=== PATIENT | male | born 1935 | race Caucasian/White ===

== ENCOUNTER 2024-07-25 05:52 | Inpatient (IN) | payer MEDICARE, OTHER, SELFPAY ==
[2024-07-20 10:19] VITALS: BMI 27.7
[2024-07-20 11:24] LABS: % Basophils 0.2 % (0-2); % Eosinophils 1.3 % (0-6); % Immature Granulocytes 0.3 % (0-0.5); % Lymphocytes 13.1 % (20.5-51.1); % Monocytes 9.7 % (1.7-9.3); % Neutrophils 75.4 % (42.2-75.2); APTT 127.1 Sec (23.4-35.0); Absolute Eosinophils 0.1 10^3/uL (0-0.7); Absolute Lymphocytes 0.8 10^3/uL (1.2-3.4); Absolute Monocytes 0.6 10^3/uL (0.1-0.6); Absolute Neutrophils 4.7 10^3/uL (1.4-6.5); Hematocrit 42.9 % (39.0-52.0); Hemoglobin 14.6 g/dL (13.0-18.0); INR 1.25; Mean Corpuscular Hgb 32.7 pg (27.0-31.0); Mean Corpuscular Volume 96.2 fL (80.0-94.0); Mean Platelet Volume 9.5 fL (7.4-10.4); Nucleated Red Blood Cells % 0 % (-); Platelet Count 141 10^3/uL (130-400); Red Blood Cell Count 4.46 10^6/uL (4.70-6.10); Red Cell Dist. Width 14.3 % (11.5-14.5); White Blood Cell Count 6.2 10^3/uL (4.8-10.8)
[2024-07-20 12:21] LABS: Blood Urea Nitrogen 23 mg/dl (9-20); Carbon Dioxide 23 mmol/L (22-30); Chloride 111 mmol/L (98-107); Estimated Creatinine Clearance 59 ml/min; Glucose 79 mg/dl (70-99); Potassium 3.9 mmol/L (3.5-5.1); Sodium 141 mmol/L (135-145); eGFR > 60.00
[2024-07-25] VITALS (28 sets, daily range): BP systolic 86–166; BP diastolic 50–117; BMI 27.0; BMI 25.4
[2024-07-25] MEDS: PERIDEX 0.12% ORAL RINSE 15 ML PO (06:56)
[2024-07-25] MEDS: BACTROBAN NASAL 1 GRAM NASAL (06:56)
--- NOTE | 2024-07-25 07:03 | W.SUR.PREOP ---
Pre-Operative Surgical Note
-
I have examined this patient prior to the performance of the scheduled procedure.
The patient's condition is unchanged from the time of the current History and
Physical and the patient is able to undergo the scheduled procedure.
Note patient has a cord that inserts into the right IJ just above the clavicle. (Just superior to the clavicle). I discussed with the patient and his this could challenge TCAR, but based on my palpation of it and interpretation of the CT scan
I think we should be okay. I did however discuss with him as an alternative carotid endarterectomy. Discussed the procedure prior as well./Benefit/alternatives of that discussed. If needed we will proceed with right carotid endarterectomy. But
initial plan still for right TCAR. He is in agreement with all.
[2024-07-25] MEDS: VANCOCIN 530 MG IV (07:08)
[2024-07-25 09:03] LABS: ACT-LR - POC 385 Seconds (116-155)
--- NOTE | 2024-07-25 09:34 | W.SUR.POST ---
Surgical Immediate Post Op
Note
Pre Op Diagnosis: Right carotid stenosis
Post Op Diagnosis: Right carotid stenosis
Procedure Performed: Right TCAR with EEG monitoring
Primary Surgeon: Sony Diehl M.D.
human resource assistant: KIAH Serrato
Anesthesia: GETA
Estimated Blood Loss: 5 ml
Fluids: See anesthesia flowsheet
Drains/Shunts: N/A
Specimens/Cultures: None
Doppler/Duplex/Angio (Y/N): Y
Complications: None
Operative Findings: Upon awakening from anesthesia patient was able to move upper extremities and lower extremities spontaneous and to commands, successful endovascular intervention for carotid stenosis
--- NOTE | 2024-07-25 10:07 | OR.RPT ---
Addendum entered and electronically signed by Sony Diehl MD 07/25/24 16:50:
Fluoroscopy time: 4.0 minutes
Dose: 46 mGy
DAP: 5.08
Original Note:
Operative Report
Operative Report
PROCEDURE DATE: 07/25/2024
Preoperative diagnosis:
1. Critical right carotid artery stenosis, questionable symptomatic.
2. Chronic left internal carotid artery occlusion.
Postoperative diagnosis: same
Procedure:
1. Open exposure of right common carotid artery.
2. Transcarotid right carotid artery revascularization with stent (TCAR) with Enroute 9mm x 40mm self-expanding stent, and utilizing Enroute HEAD PACKAGER flow reversal intraprocedural neuro protection.
3. Intraoperative EEG/SSEP monitoring.
4. Supervision and interpretation
CPT code 60869, SVS VQI TCAR #[id number]
Surgeon: Fazal
Mold Repairer: EVAN Quintero, required for this vascular procedure including assistance with traction/countertraction, assistance with wire manipulation/device delivery, assistance with closure.
Complications: None
Anesthesia: General
Indications for procedure:
Critical right carotid artery stenosis, chronic left occlusion. Neurologic symptoms he had had over the course of several months, some raising concern for possible symptomatology. Risk/benefits/alternatives of TCAR fully discussed. Patient
understood all wished to proceed. Note the patient had a right sided [id number] that tunneled over the clavicle and into the IJ vein, but it was somewhat lateral to the clavicular head of the sternocleidomastoid muscle, and on cross-sectional
imaging appeared to dive into the vein at the level of or just underneath the clavicle, and I did assess this with ultrasound while in the operating room and confirmed that this would likely not be in my way for exposure.
Description of procedure:
Patient was identified brought to the operating room placed on the table in supine position. After the adequate administration of anesthesia and perioperative antibiotics he was prepped and draped in the standard surgical fashion. A standard
preoperative timeout was undertaken and everybody was in agreement the plan. A longitudinal incision was made at the base of the right neck between the heads of the sternocleidomastoid muscle just superior to the clavicle. This incision was
carried through the skin subcutaneous tissue. Using the electrocautery dissection was carried through the platysma muscle layer and then in the plane between the heads of the sternocleidomastoid muscle. Then using a combination of sharp dissection
with the Metzenbaum scissors and electrocautery I dissected along the anterior medial border of the internal jugular vein. The common carotid artery was identified and carefully dissected away from the surrounding structures take great care to
avoid any injury to the structures. Note the vessel was noted to be quite deep, but after careful circumferential dissection, a vessel loop was passed around it. Then I was able to pull the carotid anterior somewhat using the vascular. The common
carotid artery was dissected circumferentially only in the proximal portion of the exposed artery, and the anterior surface was dissected for another 2 cm. Next, a 5-0 Prolene pursestring stitch was placed on the anterior middle surface of the
common carotid artery at the anticipated puncture/cannulation site. The patient was now given 9000 units of intravenous heparin.
Next, the left common femoral vein was punctured with a micropuncture kit under direct duplex ultrasound guidance. An 8 Lithuanian venous sheath was placed over 0.035 inch wire into the vein. The sheath was flushed.
Next, while maintaining anterior tension on the vessel loop (single looped), the right common carotid artery was punctured with a micropuncture needle (premarked) to only 1 cm and a premarked 0.014 inch wire was inserted and then the needle was
exchanged out for a premarked micropuncture sheath and advanced to 3 cm flor. The dilator and wire were then removed. Right anterior oblique angiogram was performed. This delineated the carotid bifurcation. It confirmed the severe stenosis in
the proximal internal carotid artery. The carotid bifurcation was marked on the screen. Now, I guided my 0.014 inch wire into the external carotid artery without difficulty. Next I reinserted the introducer for the micropuncture sheath, and then
advanced the entire sheath into the external carotid artery. I then removed the dilator and the 0.014 inch wire. Next, I then advanced a 0.035 inch wire with a J curve at the tip. I then exchanged the micropuncture sheath out for the 8 [place]
[address] [place] [address] sheath, which was advanced to the footplate under fluoroscopy with careful vigilance of the distal tip of the wire. Once advanced to the footplate, the introducer and wire were removed. The tension from the vessel loop was
released. And the sheath was secured to the skin with silk suture. The sheath was burped back and also flushed carefully. Next repeat imaging was undertaken confirming the best angulation of the gantry for imaging. At this point, the angioplasty
balloon and stent were prepared. We paused to confirm the plan regarding balloon/stent, and confirmed adequate ACT over 300. Next, I connected the arterial sheath to the venous sheath with the filter section. As such passive flow reversal was
initiated. There were no evidence of any EEG or SSEP changes. We flushed the venous sheath to confirm adequate passive flow reversal.
At this point given that we were otherwise ready, I tightened my double looped vessel loop on the common carotid artery thereby initiating active flow reversal. Again I flushed the venous sheath to confirm active flow reversal. There was no EEG or
SSEP changes. I now used a precurved 0.014 inch wire and roadmap assisted fluoroscopy guidance to cannulate the internal carotid artery carefully. I was able to gain access into the distal cervical/proximal intracranial internal carotid artery.
Next I used a balloon which was a 6.0 mm x 30 mm Viatrac standard angioplasty balloon. I then pre-angioplastied the stenosis. The patient had been given glycopyrrolate to prevent any baroreceptor mediated bradycardia. The patient's blood pressure
had also been optimized after discussion with our anesthesiology colleagues prior to initiation of flow reversal. I then quickly exchanged out my balloon catheter for the stent 9mm x 40mm Enroute stent. The stent was positioned under roadmap
guidance. When I was happy with the positioning I then unsheathed in the standard fashion. The stent delivery device was then removed. Completion angiography was undertaken after 2 minutes of waiting after deployment of the stent for the flow
reversal to take effect. Completion angiogram demonstrated excellent result and it was done in 2 obliquities to confirm. No residual stenosis was noted. Good intracranial filling was noted. At this point, I was very satisfied. The 0.014 inch
wire was then removed from the internal carotid artery. Next, the common carotid artery was unclamped. Finally I disconnected the flow reversal circuit.
Now, I tied down my 5-0 Prolene pursestring suture on the common carotid artery while removing the sheath. We gave protamine to reverse the heparin. I irrigated the incision site and confirmed full hemostasis. Then, we closed in layers using
single [id number] 2-0 Vicryl to reapproximate the sternocleidomastoid heads. Then used 3-0 Vicryl platysma muscle running layer followed by 4-0 Monocryl subcuticular running stitch. Dermabond was applied. The femoral vein sheath was also
removed and manual pressure was applied to that site and hemostasis was noted there as well. The patient tolerated the procedure well. He awoke moving all 4 extremities to command. All sponge, needle, instrument counts were correct at the end of
the case. The patient was transported to the recovery room in stable condition.
[2024-07-25] MEDS: NEO-SYNEPHRINE 250 IV (10:26)
--- NOTE | 2024-07-25 10:45 | PTCARENOTE ---
Addendum.. Per Edie Bowen utilize cuff pressure for accuracy as A-line waveform isdampened. Since arrival unable to maintain a wave form. A-line evaluated by Dr Avila as well. Positive blood return, able to draw labs will maintain A-line.
[2024-07-25] MEDS: DILAUDID 0.25 MG IV (10:50)
[2024-07-25 10:53] LABS: Hematocrit 38.9 % (39.0-52.0); Hemoglobin 13.3 g/dL (13.0-18.0); Mean Corp Hgb Conc. 34.2 g/dL (33.0-37.0); Mean Corpuscular Hgb 32.7 pg (27.0-31.0); Mean Corpuscular Volume 95.6 fL (80.0-94.0); Mean Platelet Volume 9.4 fL (7.4-10.4); Platelet Count 141 10^3/uL (130-400); Red Blood Cell Count 4.07 10^6/uL (4.70-6.10); Red Cell Dist. Width 14.4 % (11.5-14.5); White Blood Cell Count 8.4 10^3/uL (4.8-10.8)
[2024-07-25 11:14] LABS: Blood Urea Nitrogen 28 mg/dl (9-20); Carbon Dioxide 22 mmol/L (22-30); Chloride 112 mmol/L (98-107); Estimated Creatinine Clearance 55 ml/min; Glucose 118 mg/dl (70-99); Potassium 4.7 mmol/L (3.5-5.1); Sodium 139 mmol/L (135-145); eGFR > 60.00
--- NOTE | 2024-07-25 12:10 | PTCARENOTE ---
Received patient from PACU, Right neck surgical incision dry and intact with glue, Left femoral surgical site covered with gauze and Tegaderm, soft with palpation, neuro checks intact, lying flat in bed until 11:55AM.
Pt A&Ox4, on NC 2L, Afib, Doppler DP pulses, Left radial art line, checked and rezeroed, 18RA and 20LA PIVs intact, continent with urine, yellow color. Updated Marilou and Son Phil at bedside.
[2024-07-25] MEDS: NSS 1000 IV ×2 (12:14→22:48)
--- NOTE | 2024-07-25 13:09 | CON.INTV ---
Consultation
Consultation Request
Date/Time Consultation Requested: 07/25/2024
Date/Time Consultation Performed: 07/25/2024
Medical History
-
History of Present Illness:
Patient is a very pleasant 88-year-old gentleman who was electively admitted today for carotid artery stenosis with plan for stent placement. Patient had the procedure performed and postsurgery was admitted to ICU for further management.
Wardrobe Supervisor consult was requested for further input.
Past medical history. Hypertension, paroxysmal atrial fibrillation, chronic kidney disease stage III, hyperlipidemia, cholecystectomy, tonsillectomy and appendectomy.
Family history. Noncontributory
Social history. Patient quit smoking in 1981.
Allergies / Home Medications
Allergies
Allergy/AdvReac Type Severity Reaction Status Date / Time
levofloxacin [From Levaquin] Allergy SYNCOPE Verified 07/25/24 06:21
Penicillins Allergy REDNESS/SWELLING Verified 07/25/24 06:21
( A
TEENAGER)
Home Medications
�Medication �Instructions �Recorded �Confirmed �Last Taken �Type
apixaban 5 mg tablet (Eliquis) 5 mg PO BID Blood Clot 07/17/24 07/25/24 07/22/24 22:00 History
Prevention/Tx
aspirin 81 mg tablet,delayed 81 mg PO DAILY Blood Clot 07/17/24 07/25/24 07/25/24 06:00 History
release Prevention/Tx
azacitidine 300 mg tablet (Onureg) 300 mg PO DIRECTED AML 07/17/24 07/25/24 07/18/24 20:00 History
multivitamin 1 tab PO DAILY Supplement 07/17/24 07/25/24 07/24/24 08:00 History
ondansetron HCl 8 mg tablet 8 mg PO DIRECTED NAUSEA/VOMITING 07/17/24 07/25/24 07/18/24 20:00 History
valsartan 40 mg tablet 20 mg PO DAILY Blood Pressure 07/17/24 07/25/24 07/24/24 10:00 History
Review of Systems
-
Hematologic/Lymphatic: Other (All 14 systems reviewed and negative except as stated above in the history of present illness. Mild expected postop pain)
Vitals / Labs / Diagnostic Testing
Vital Signs
Temp Pulse Resp BP Pulse Ox
97.4 F 72 11 107/65 98
07/25/24 12:03 07/25/24 11:25 07/25/24 11:25 07/25/24 11:25 07/25/24 11:25
Lab Data
07/25/24 10:46
07/25/24 10:46
Diagnostic Testing:
Physical Exam
-
HEENT: Normocephalic
Cardiovascular: S1/S2
Respiratory: Clear
GI: Soft
Neurology: Awake and Alert
Skin: Warm
General: Comfortable
Assessment
-
Patient is s/p Transcarotid right carotid artery revascularization with stent (TCAR) with Enroute 9mm x 40mm self-expanding stent, by vascular surgery service, POD #0
Continue observation following procedure
Follow neurovascular checks per protocol
ASA PO
Follow BP monitoring and parameters as set by primary team
H/o A fib. continue telemetry. A-Line in place. Eliquis on hold.
Pain control per protocol
RASS goal 0
No prior history of pulmonary disease, remote smoking history, quit in 1981
CXR reviewed indicating no acute disease
No prior PFTs for review
Encouraged IS
Diet advancement per protocol
Aspiration precautions
DVT prophylaxis with subcu heparin.
CBC, BMP have been fairly unremarkable.
Void trials
Replete electrolytes as needed
No signs/symptoms suspicious for infectious etiology at this time
Will observe off antibiotics for now
Follow temperatures/CBC
Hb and platelets postoperatively stable
Encouraged OOB/PT/OT/ambulation once cleared by surgical team
Other medical issues:
- History of chronic kidney disease, creatinine today is 1.1
- Paroxysmal atrial fibrillation, chronic anticoagulation with Eliquis at baseline
- History of hypertension, takes valsartan
- Hyperlipidemia
- BPH
Critical Care time 42 mins -- The patient is admitted for acute critical illness for the treatment of vital organ failure and/or prevention of further life-threatening conditions. Total care includes time spent in review of history, physical exam,
medications, hemodynamic/ventilator parameters, laboratory data, imaging and discussion with house staff, pharmacy, respiratory therapy, protocol manager, and nursing.
Data:
CXR 07/2024:No radiographic evidence of acute cardiopulmonary abnormality.
ECHO 09/2017: Normal left ventricular size, wall thickness and systolic function. LV ejection fraction is 55-60%.
Possible bicuspid aortic valve but imaging not definitive is adequate leaflet excursion.
No prior study available for comparison.
CT Chest 09/2017: No evidence of pulmonary embolism.
Mild type B aortic intramural hematoma. By report, there is a known history of some type of 'aortic process' in the past. Therefore, findings may be chronic. Direct comparison with any prior outside examination would be beneficial.
Mild bronchial wall thickening/bronchitis.
CT Abdomen/Pelvis 09/2017:
1. Severe aortic atherosclerotic changes as described. No findings highly suspicious for recent aortic intramural hematoma. There is extensive irregular mural thrombus along the thoracic and abdominal aorta as above. There is mild ectasia of the
ascending aorta.
2. 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 No signs of a flow-limiting dissection.
3. Severe stenoses at the origins of the bilateral renal arteries.
4. Bilateral renal cysts and likely cysts.
5. Diverticulosis without diverticulitis.
[2024-07-25] MEDS: TYLENOL 650 MG PO (14:52)
--- NOTE | 2024-07-25 16:30 | PTCARENOTE ---
Reassessed the patient, A&Ox4, on RA now, Afib w/ RBBB, off Phenylephrine drip at 12:30PM, SBP within goal, low cholesterol diet, adequate UOP.
Patient complained indigestion, notified GURMEET Irizarry ordered.
[2024-07-25] MEDS: TUMS EX (EXTRA STRENGTH) CHEWABLE TABLET 600 MG PO ×2 (17:18→22:47)
[2024-07-25] MEDS: HEPARIN 5000 UNITS SC (20:03)
[2024-07-25] MEDS: ROXICODONE 5 MG PO (20:03)
[2024-07-26] VITALS (42 sets, daily range): BP systolic 80–136; BP diastolic 46–87; BMI 25.5
--- NOTE | 2024-07-26 | PTCARENOTE ---
pt reassessed, q1h neuro checks ongoing, afib on monitor, oriented x3, KIRBY, denies numbness or tingling, on RA, using urinal. R neck incision w/ glue, ecchymosis noted, LONG CHAIN BEAMER. L groin site with gauze and Tegaderm, old drainage noted. NS infusing,
arterial line leveled and zeroed. call siu in reach.
[2024-07-26] MEDS: ROXICODONE 5 MG PO (02:02)
[2024-07-26] MEDS: TUMS EX (EXTRA STRENGTH) CHEWABLE TABLET 600 MG PO ×3 (02:50→16:13)
[2024-07-26] MEDS: TYLENOL 650 MG PO ×2 (04:53→09:22)
--- NOTE | 2024-07-26 05:06 | PTCARENOTE ---
AM labs sent. PRN pain meds given overnight for surgical incision pain, see MAY. call siu in reach. care ongoing
[2024-07-26 05:08] LABS: Hematocrit 37.6 % (39.0-52.0); Hemoglobin 12.7 g/dL (13.0-18.0); Mean Corp Hgb Conc. 33.8 g/dL (33.0-37.0); Mean Corpuscular Hgb 32.1 pg (27.0-31.0); Mean Corpuscular Volume 94.9 fL (80.0-94.0); Mean Platelet Volume 9.8 fL (7.4-10.4); Platelet Count 152 10^3/uL (130-400); Red Blood Cell Count 3.96 10^6/uL (4.70-6.10); Red Cell Dist. Width 14.2 % (11.5-14.5); White Blood Cell Count 7.8 10^3/uL (4.8-10.8)
[2024-07-26 05:17] LABS: INR 1.04; PT 14.1 Sec (11.4-14.6)
[2024-07-26 05:19] LABS: APTT 34.5 Sec (23.4-35.0); Blood Urea Nitrogen 29 mg/dl (9-20); Calcium 9.1 mg/dl (8.4-10.2); Carbon Dioxide 22 mmol/L (22-30); Chloride 111 mmol/L (98-107); Estimated Creatinine Clearance 61 ml/min; Glucose 132 mg/dl (70-99); Potassium 4.7 mmol/L (3.5-5.1); Sodium 138 mmol/L (135-145); eGFR > 60.00
--- NOTE | 2024-07-26 06:30 | PTCARENOTE ---
Dr Hallman notified via TT of HR dipping into 30-40 range, remains in afib. Ron restarted briefly for SBP 90-100, pt responded quickly with SBP rising to 180, gtt titrated off, see flowsheet.
[2024-07-26] MEDS: THERAGRAN 1 TABLET PO (07:20)
[2024-07-26] MEDS: ASPIR LOW (ENTERIC COATED) 81 MG PO (07:20)
[2024-07-26] MEDS: HEPARIN 5000 UNITS SC (07:28)
[2024-07-26] MEDS: DIOVAN 20 MG PO (07:34)
--- NOTE | 2024-07-26 07:34 | W.PN.VS ---
Today's Communication / Plan
-
Seen and assessed with Dr. Diehl
Assessment/Plan
-
POD 1 right TCAR
Plan:
- DC A-line
- DC IV fluids
- P.o. meds
- Out of bed/ambulate
- Monitor heart rate
- Likely DC later today
Subjective Data
-
Date of Service: July 26, 2024
Patient seen at bedside this a.m. with Dr. Diehl. Patient offers no complaints at this time. Patient was noted to be slightly bradycardic over the last hour while on ron. Ron off now heart rate returned to upper 50s.
Objective Data
-
Vital Signs
Temp Pulse Resp BP Pulse Ox
97.7 F 39 13 94/53 94
07/26/24 06:08 07/26/24 06:45 07/26/24 06:45 07/25/24 14:00 07/26/24 06:45
Intake and Output
07/25/24 07/26/24 07/27/24
06:59 06:59 06:59
Intake Total 2966 / 2966
Output Total 2475 / 2475
Balance 491 / 491
Intake:
Oral fluids 1440 / 1440
IV fluids (Total) 1526 / 1526
Neosynephrine 6 / 6
Nss 1,000 ml @ 80 mls/hr IV . 1520 / 1520
[id number] CARLOS Rx#:[id number]
Output:
Urine, Voided 2474 / 2475
Lab Results
07/26/24 04:45
07/26/24 04:45
Calcium 9.1 mg/dl (8.4-10.2) 07/26/24 04:45
Physical Exam
-
AAO x 3
No tachypnea on room air
Intermittent bradycardia
Abdomen soft
Neck site clean, dry, intact, soft, flat
Groin site clean, dry, intact, soft, flat
Moves all extremities equally
Tongue midline
--- NOTE | 2024-07-26 08:03 | PTCARENOTE ---
Pt received from chief chemist RN. Pt is Ox3 and appropriate, no complaints of numbness. KIRBY +4. Afib in the 40-50's on tele with occasional pauses, + pedals via doppler. L radial A line removed, pressure held for >5 mins and a pressure dressing was
applied. Breath sounds clear on RA, pulse ox 97%. No complaints of nausea, pt has not eaten yet this AM but complains of some indigestion. Using urinal appropriately. R neck site CDI with surgical glue, L groin puncture site intact with some mild
bleeding. IV sites intact, fluids dc'd. Pt assisted OOB to the chair without any difficulty. Call siu within reach. Pt makes needs known.
--- NOTE | 2024-07-26 09:07 | W.PN.INTV ---
Today's Communication / Plan
Recommendations
- Check TSH
- Cardiology consult
- Continue telemetry monitoring
Assessment
-
Patient is a very pleasant 88-year-old gentleman who was electively admitted today for carotid artery stenosis with plan for stent placement. Patient had the procedure performed and postsurgery was admitted to ICU for further management.
Multiple Games Dealer consult was requested for further input.
Patient is s/p Transcarotid right carotid artery revascularization with stent (TCAR) with Enroute 9mm x 40mm self-expanding stent, by vascular surgery service, POD #1
Continue observation following procedure
Follow neurovascular checks per protocol
ASA & Eliquis per Vascular surgery
Follow BP monitoring and parameters as set by primary team
H/o A fib. continue telemetry. A-Line removed.
Pain control per protocol
RASS goal 0
No prior history of pulmonary disease, remote smoking history, quit in 1981
CXR reviewed indicating no acute disease
No prior PFTs for review
Encouraged IS
Diet advancement per protocol
Aspiration precautions
DVT prophylaxis with subcu heparin.
CBC, BMP have been fairly unremarkable.
Void trials
Replete electrolytes as needed
No signs/symptoms suspicious for infectious etiology at this time
Will observe off antibiotics for now
Follow temperatures/CBC
Hb and platelets postoperatively stable
Encouraged OOB/PT/OT/ambulation once cleared by surgical team
Other medical issues:
- History of chronic kidney disease, creatinine today is 1.0 today
- Paroxysmal atrial fibrillation with bradycardia. Has not been on any willian blocking agent. Cardiology consult, continue telemetry, ?sick sius. Check TSH. Holding valsartan due to soft blood pressure.
- History of hypertension, takes valsartan, placed on hold in view of borderline low blood pressure, otherwise asymptomatic
- Hyperlipidemia
- BPH
Critical Care time 40 mins -- The patient is admitted for acute critical illness for the treatment of vital organ failure and/or prevention of further life-threatening conditions. Total care includes time spent in review of history, physical exam,
medications, hemodynamic/ventilator parameters, laboratory data, imaging and discussion with house staff, pharmacy, respiratory therapy, inseminator, and nursing.
Data:
CXR 07/2024:No radiographic evidence of acute cardiopulmonary abnormality.
ECHO 09/2017: Normal left ventricular size, wall thickness and systolic function. LV ejection fraction is 55-60%.
Possible bicuspid aortic valve but imaging not definitive is adequate leaflet excursion.
No prior study available for comparison.
CT Chest 09/2017: No evidence of pulmonary embolism.
Mild type B aortic intramural hematoma. By report, there is a known history of some type of 'aortic process' in the past. Therefore, findings may be chronic. Direct comparison with any prior outside examination would be beneficial.
Mild bronchial wall thickening/bronchitis.
CT Abdomen/Pelvis 09/2017:
1. Severe aortic atherosclerotic changes as described. No findings highly suspicious for recent aortic intramural hematoma. There is extensive irregular mural thrombus along the thoracic and abdominal aorta as above. There is mild ectasia of the
ascending aorta.
2. 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 No signs of a flow-limiting dissection.
3. Severe stenoses at the origins of the bilateral renal arteries.
4. Bilateral renal cysts and likely cysts.
5. Diverticulosis without diverticulitis.
Subjective Dataa
Subjective Data
Date of Service:
Date of Service: July 26, 2024
Subjective:
Patient comfortably sitting in bed, in no acute distress.
Review of Systems
Genitourinary: Other (All 14 systems reviewed and negative except as stated above in the history of present illness. Patient denies any dizziness, near-syncope or difficulty breathing.)
Objective Data
Data Reviewed
Vital Signs / I&O / Oxygen:
Vital Signs
Temp Pulse Resp BP Pulse Ox
97.8 F 46 16 116/64 97
07/26/24 07:35 05/22/25 08:00 07/26/24 08:00 07/26/24 08:00 07/26/24 08:17
Intake and Output
07/25/24 07/26/24 07/27/24
06:59 06:59 06:59
Intake Total 2966 / 3046 160 / 160
Output Total 2475 / 2475
Balance 491 / 571 160 / 160
SaO2 97
Nasal Cannula flow liters per 2
minute
Physical Exam
General: Comfortable
HEENT: Normocephalic
Cardiovascular: S1-S2 (Bradycardia noted)
Respiratory: Clear and Non-Labored Respirations
GI: Soft and Non Distended
Neurology: Awake and Alert
Skin: Warm
Labs/Micro/Reports
Lab Data
07/26/24 04:45
07/26/24 04:45
Laboratory Results
07/26/24
04:45
PT 14.1
INR 1.04
APTT 34.5
--- NOTE | 2024-07-26 09:23 | CON.CAR ---
Consultation
Consultation Request
Date/Time Consultation Requested: 07/26/2024 9 AM
Date/Time Consultation Performed: 07/26/2024 9:20 AM
Requesting Provider: Dr. Diehl
Performing Provider: Dr. Amaya
Reason for Consultation: Bradycardia
Medical History
-
History of Present Illness:
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 Rey Ortega 06/01/2024
.
88-year-old male who had seen Dr. Ortega there was concern for symptoms related to amaurosis fugax. Patient also with atrial fibrillation placed on anticoagulation. Not felt to have symptoms related to A-fib at that time appears patient was
started on Eliquis and then had additional evaluation for TIA. 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 Previous ECG with atrial fibrillation with controlled
ventricular response at heart rate of 81 bpm right bundle branch block and left axis/bifascicular block.
Patient underwent right TCAR and is in ICU. Noted to have bradycardia.
No syncope or near syncope currently asymptomatic at sitting in a chair heart rate in the 50s. Review of telemetry some heart rates in the 40s no long pauses.
Systolic blood pressure in the 90s
Past medical history
A-fib. Anticoagulation with Eliquis which was started 06/01/2024
AML
Type B intramural hematoma
Renal artery stenosis with history of renal artery stenting
History of nonobstructive coronary artery disease 20% LAD stenosis by cardiac catheterization
RBBB
CKD
Cholecystectomy
Nephrolithiasis
GERD
Total hip arthroplasty
Hypertension
Raynaud's phenomenon
Echocardiogram ejection fraction 55 to 60% possible bicuspid aortic valve 09/13/2017
Past Medical History
Past Medical History: Other (As above)
Social History
Tobacco: Non-Smoker
Family History
Family History: Reviewed & Not Pertinent
Allergies / Home Medications
Allergy/AdvReac Type Severity Reaction Status Date / Time
levofloxacin [From Levaquin] Allergy SYNCOPE Verified 07/25/24 06:21
Penicillins Allergy REDNESS/SWELLING Verified 07/25/24 06:21
( A
TEENAGER)
�Medication �Instructions �Recorded �Confirmed �Type
apixaban 5 mg tablet (Eliquis) 5 mg PO BID Blood Clot 07/17/24 07/25/24 History
Prevention/Tx
aspirin 81 mg tablet,delayed 81 mg PO DAILY Blood Clot 07/17/24 07/25/24 History
release Prevention/Tx
azacitidine 300 mg tablet (Onureg) 300 mg PO DIRECTED AML 07/17/24 07/25/24 History
multivitamin 1 tab PO DAILY Supplement 07/17/24 07/25/24 History
ondansetron HCl 8 mg tablet 8 mg PO DIRECTED NAUSEA/VOMITING 07/17/24 07/25/24 History
valsartan 40 mg tablet 20 mg PO DAILY Blood Pressure 07/17/24 07/25/24 History
Review of Systems
-
All other systems: Negative unless noted
Physical Exam
Vital Signs
Temp Pulse Resp BP Pulse Ox
97.8 F 46 16 116/64 97
07/26/24 07:35 07/26/24 08:00 07/26/24 08:00 07/26/24 08:00 07/26/24 08:17
Lab Results
07/26/24 04:45
07/26/24 04:45
Physical Exam
General: Well Developed, Well Nourished and No Apparent Distress
HEENT: Normocephalic, Anicteric and Other (No detectable JVD)
Cardiac: Other (Irregular irregular no murmur rub or gallop)
GI: Soft, Non Tender, Non Distended and Other (No mass detected Limited exam in chair)
Musculoskeletal: No Clubbing and No Cyanosis
Skin: Warm, Dry and Rash (None)
Neuro: Awake and Alert
Psych: Calm and Other (Cooperative)
Impression / Plan
-
.
Bradycardia.
- A-fib with slow ventricular response with no rate slowing meds.
- Patient with underlying conduction disease he has a history of right bundle branch block/bifascicular block with rate controlled A-fib despite no rate slowing meds based on prior ECG in May. That time heart rate in the 80s.
- Patient may be running slower heart rate than baseline due to recent carotid procedure/ TCAR.
- Currently patient with heart rate in the 50s.
- No indication for pacing at this time. However would recommend additional observation on telemetry
- Patient had recent outpatient echocardiogram and will have his bring in the result. Echocardiogram was done within the last 2 months
.
Low blood pressure. Systolic blood pressures in the 90s may be multifactorial
- Discontinue valsartan and monitor blood pressures
- Additional IV fluid
- Monitor pressures.
.
A-fib.
- History of A-fib prior to admission.
- Resume Eliquis when okay from a postoperative standpoint
.
Post TCAR management directed by vascular surgery
.
Data Reviewed
-
EKG: Report Reviewed by me
Radiology: Report Reviewed by me
Medical Tests (Nuc Med, Echo etc): Report Reviewed by me
Labs: Labs Reviewed by me and Discussed with Physician
--- NOTE | 2024-07-26 09:31 | PTCARENOTE ---
HR frequently dropping into the mid to low 30's, BP in the 100/50's pt states that he feels tired but this is most likely from not getting any sleep overnight. made aware. EKG obtained.
[2024-07-26] MEDS: NSS 250 IV (10:00)
[2024-07-26 10:52] LABS: TSH 0.47 uIU/ml (0.47-4.68)
[2024-07-26] MEDS: NSS 500 IV (11:17)
--- NOTE | 2024-07-26 11:29 | PTCARENOTE ---
Pt sitting up in the chair. He states that he feels dizzy with double vision in his L eye. BP currently 89/49, HR 61. Pt pulled over from the chair to bed. Vascular CITY ROUTE DRIVER spoke to pt and , 500ml NSS bolus ordered.
--- NOTE | 2024-07-26 11:37 | CM ---
Initial assessment completed with patient who lives with his in a 2 story plus basement home with 1 step to enter. B/B on 2nd with 1/2 bath on . 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 He does drive. No DME in home but does
have a [employer] Mobile device to monitor his A-Fib.
No in-home services. Was in the [place]. [facility] [place] Does have a HC POA. Requested to bring in to hospital. Support system is and 2 sons and vernon-in-law. PCP is Dr. Hakeem Renee and Pharmacy is [facility] [address] in [place].. Patient has had [facility] in the past but has declined services at this time. Spoke with who said she always has taken care of him and does not feel he will need HH. Discharge POC: Home with no needs. Declined HH
services.
[2024-07-26] MEDS: ELIQUIS 5 MG PO (15:01)
[2024-07-26] MEDS: PEPCID 20 MG IV (18:21)
[2024-07-26] MEDS: NSS (PRESERVATIVE FREE) 8 ML IV (18:21)
[2024-07-27] VITALS (47 sets, daily range): BP systolic 90–161; BP diastolic 40–94; PULSE 42–64; BMI 25.5
--- NOTE | 2024-07-27 | PTCARENOTE ---
pt reassessed. no changes noted. CHG bath and oral care done
[2024-07-27 03:27] LABS: Hematocrit 38.3 % (39.0-52.0); Hemoglobin 12.8 g/dL (13.0-18.0); Mean Corp Hgb Conc. 33.4 g/dL (33.0-37.0); Mean Corpuscular Hgb 32.4 pg (27.0-31.0); Platelet Count 138 10^3/uL (130-400); Red Blood Cell Count 3.95 10^6/uL (4.70-6.10); Red Cell Dist. Width 14.5 % (11.5-14.5); White Blood Cell Count 5.3 10^3/uL (4.8-10.8)
[2024-07-27 03:49] LABS: Blood Urea Nitrogen 34 mg/dl (9-20); Calcium 8.9 mg/dl (8.4-10.2); Carbon Dioxide 22 mmol/L (22-30); Chloride 112 mmol/L (98-107); Estimated Creatinine Clearance 47 ml/min; Glucose 95 mg/dl (70-99); Magnesium 1.9 mg/dl (1.6-2.3); Potassium 4.5 mmol/L (3.5-5.1); Sodium 139 mmol/L (135-145); eGFR 53.17
--- NOTE | 2024-07-27 04:30 | PTCARENOTE ---
AM labs sent. pt reassessed, no changes noted. q4h neuro checks. call siu in reach
[2024-07-27] MEDS: ELIQUIS 5 MG PO ×2 (05:52→20:22)
--- NOTE | 2024-07-27 07:25 | W.PN.VS ---
Addendum entered and electronically signed by Sony Diehl MD 07/27/24 07:28:
Seen and examined with EVAN Quintero. Agree with findings as noted below. Patient without any complaints. Denies any episodes of dizziness/chest pain. Noted bradycardia episodes. Right neck incision is clean dry and intact. Abdomen soft, left
groin flat. Neurologically no focal deficits. Plan/as discussed and noted below. Appreciate cardiology evaluation and follow-up regarding bradycardia.
Original Note:
Today's Communication / Plan
-
Seen and assessed with Dr. Diehl
Assessment/Plan
-
POD 1 right TCAR
Plan:
- Appreciate cardiology
- Out of bed/ambulate
- Monitor heart rate
- Discharge when cleared from cardiology perspective
Subjective Data
-
Date of Service: July 27, 2024
Patient seen at bedside this a.m. with Dr. Diehl. Patient offers no real complaints at this time. No events overnight. Patient's heart rate dropped to the mid 30s this morning, asymptomatic.
Objective Data
-
Vital Signs
Temp Pulse Resp BP Pulse Ox
97.4 F 67 15 116/68 100
07/27/24 03:30 07/27/24 06:00 07/27/24 06:00 07/27/24 06:00 07/26/24 22:30
Intake and Output
07/26/24 07/27/24 07/28/24
06:59 06:59 06:59
Intake Total 2966 / 3046 1630 / 1630
Output Total 2475 / 2475 1650 / 1650
Balance 491 / 571 -20 / -20
Intake:
Oral fluids 1440 / 1440 720 / 720
IV fluids (Total) 1526 / 1606 910 / 910
NSS Bolus 750 / 750
Neosynephrine 6 / 6
Nss 1,000 ml @ 80 mls/hr IV . 1520 / 1600 160 / 160
[id number] [facility] Rx#:[id number]
Output:
Urine, Voided 2475 / 2475 1650 / 1650
Lab Results
07/27/24 03:12
07/27/24 03:12
Calcium 8.9 mg/dl (8.4-10.2) 07/27/24 03:12
Magnesium 1.9 mg/dl (1.6-2.3) 07/27/24 03:12
Physical Exam
-
AAO x 3
No tachypnea on room air
Intermittent bradycardia
Abdomen soft
Neck site clean, dry, intact, soft, flat
Groin site clean, dry, intact, soft, flat
Moves all extremities equally
Tongue midline
[2024-07-27] MEDS: THERAGRAN 1 TABLET PO (07:34)
[2024-07-27] MEDS: ASPIR LOW (ENTERIC COATED) 81 MG PO (07:34)
--- NOTE | 2024-07-27 08:39 | PTCARENOTE ---
Pt received from casino shift manager RN. Ox3 and appropriate, he's not complaining of any numbness. Afib on tele, rate is frequently dipping down to the low 30's, he is having frequent pauses as long as 3.5 seconds. Pt is asymptomatic with BP currently
101/49. Pulses present via doppler. Breath sounds clear, on RA 96%. ABD soft. Pt using urinal without difficulty. Assisted pt into the bathroom with a rolling walker, he tolerated well without any lightheadedness or diplopia. Brushed teeth at the
sink and sat in the chair. Incisions and cath site intact. IV sites intact. Not complaining of any pain. Call siu within reach. Pt makes needs known.
--- NOTE | 2024-07-27 08:49 | W.PN.CD ---
Today's Communication / Plan
-
bradycardia - - Would recommend additional observation on telemetry. Continuing to assess if he develps incdication fro pacing
Patient reported brief issues with reading out of left eye when trying to read the message board on the wall. Now resolved. Will review with vascular surgery. Note patient back on Eliquis
Impression / Plan
-
.
Bradycardia.
- A-fib with slow ventricular response with no rate slowing meds.
- Patient with underlying conduction disease he has a history of right bundle branch block/bifascicular block with rate controlled A-fib despite no rate slowing meds based on prior ECG in May. That time heart rate in the 80s.
- Patient may be running slower heart rate than baseline due to recent carotid procedure/ TCAR.
- Currently patient with heart rate in the 40-50s. longest pause 3.5sec
- Would recommend additional observation on telemetry. Continuing to assess if he develps incdication fro pacing
- Patient had recent outpatient echocardiogram with normal LVF
.
Low blood pressure. was lower at times yesteday. SBP currently 100
- Discontinue valsartan and monitor blood pressures
- Additional IV fluid
- Monitor pressures.
.
A-fib.
- History of A-fib prior to admission.
- Eliquis
.
Post TCAR management directed by vascular surgery
.
? transient change in vision left eye. [place] he couldnot read the board on wall clearly. Now resolved.
will have [facility] surgery assess
.
Physical Exam
Vital Signs/Labs
Vital Signs
Temp Pulse Resp BP Pulse Ox
97.8 F 48 18 96/48 96
07/27/24 08:00 07/27/24 08:05 07/27/24 08:05 07/27/24 08:05 07/27/24 08:26
07/26/24 07/27/24 07/28/24
06:59 06:59 06:59
Actual Weight 90 kg 90 kg
07/27/24 03:12
07/27/24 03:12
PT 14.1 Sec (11.4-14.6) 07/26/24 04:45
INR 1.04 07/26/24 04:45
APTT 34.5 Sec (23.4-35.0) 07/26/24 04:45
Magnesium 1.9 mg/dl (1.6-2.3) 07/27/24 03:12
TSH 0.47 uIU/ml (0.47-4.68) 07/26/24 04:45
Physical Exam
Constitutional: No acute distress
Cardiovascular: Rhythm/rate is irregular
Respiratory: Wheeze Absent and Rhonchi Absent
GI: Soft
Neuro/Psych: Alert
Data Reviewed
-
Date of Service: July 27, 2024
EKG: Report Reviewed by me
Medical Tests (PFT, Pathology etc): Report Reviewed by me
Labs: Labs Reviewed by me
[2024-07-27] MEDS: LR 1000 IV (10:00)
--- NOTE | 2024-07-27 12:01 | W.PN.INTV ---
Today's Communication / Plan
Recommendations
- LR infusion at 100 mL/h for 10 hours, total of 1 L
- Continue telemetry monitoring
Assessment
-
Patient is a very pleasant 88-year-old gentleman who was electively admitted today for carotid artery stenosis with plan for stent placement. Patient had the procedure performed and postsurgery was admitted to ICU for further management.
Marketing Communications Leader consult was requested for further input.
Patient is s/p Transcarotid right carotid artery revascularization with stent (TCAR) with Enroute 9mm x 40mm self-expanding stent, by vascular surgery service, POD #2
Continue observation following procedure
Follow neurovascular checks per protocol
ASA & Eliquis per Vascular surgery
Follow BP monitoring and parameters as set by primary team
H/o A fib. continue telemetry. A-Line removed. Bradycardia noted.
Pain control per protocol
RASS goal 0
No prior history of pulmonary disease, remote smoking history, quit in 1981
CXR reviewed indicating no acute disease
No prior PFTs for review
Encouraged IS
Diet advancement per protocol
Aspiration precautions
DVT prophylaxis with subcu heparin.
CBC, BMP have been fairly unremarkable.
Void trials
Replete electrolytes as needed
No signs/symptoms suspicious for infectious etiology at this time
Will observe off antibiotics for now
Follow temperatures/CBC
Hb and platelets postoperatively stable
Encouraged OOB/PT/OT/ambulation once cleared by surgical team
Other medical issues:
- History of chronic kidney disease, creatinine bit up, @1.3 today.
- Paroxysmal atrial fibrillation with bradycardia. Has not been on any willian blocking agent. Cardiology consult, continue telemetry, ?sick sinus, Normal TSH. Holding valsartan due to soft blood pressure. Await EP input.
- History of hypertension, takes valsartan, placed on hold in view of borderline low blood pressure, otherwise asymptomatic. LR x 1 ltr
- Hyperlipidemia
- BPH
Critical Care time 38 mins -- The patient is admitted for acute critical illness for the treatment of vital organ failure and/or prevention of further life-threatening conditions. Total care includes time spent in review of history, physical exam,
medications, hemodynamic/ventilator parameters, laboratory data, imaging and discussion with house staff, pharmacy, respiratory therapy, inspector plumbing, and nursing.
Data:
CXR 07/2024:No radiographic evidence of acute cardiopulmonary abnormality.
ECHO 09/2017: Normal left ventricular size, wall thickness and systolic function. LV ejection fraction is 55-60%.
Possible bicuspid aortic valve but imaging not definitive is adequate leaflet excursion.
No prior study available for comparison.
CT Chest 09/2017: No evidence of pulmonary embolism.
Mild type B aortic intramural hematoma. By report, there is a known history of some type of 'aortic process' in the past. Therefore, findings may be chronic. Direct comparison with any prior outside examination would be beneficial.
Mild bronchial wall thickening/bronchitis.
CT Abdomen/Pelvis 09/2017:
1. Severe aortic atherosclerotic changes as described. No findings highly suspicious for recent aortic intramural hematoma. There is extensive irregular mural thrombus along the thoracic and abdominal aorta as above. There is mild ectasia of the
ascending aorta.
2. 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 No signs of a flow-limiting dissection.
3. Severe stenoses at the origins of the bilateral renal arteries.
4. Bilateral renal cysts and likely cysts.
5. Diverticulosis without diverticulitis.
Subjective Dataa
Subjective Data
Date of Service:
Date of Service: July 27, 2024
Subjective:
Patient comfortably sitting in chair, in no acute distress.
Review of Systems
Genitourinary: Other (All 14 systems reviewed and negative except as stated above in the history of present illness.)
Objective Data
Data Reviewed
Vital Signs / I&O / Oxygen:
Vital Signs
Temp Pulse Resp BP Pulse Ox
97.8 F 48 18 96/48 96
07/27/24 08:00 07/27/24 08:05 07/27/24 08:05 07/27/24 08:05 07/27/24 08:26
Intake and Output
07/26/24 07/27/24 07/28/24
06:59 06:59 06:59
Intake Total 2966 / 3046 1630 / 1630
Output Total 2475 / 2475 1650 / 1650 250 / 250
Balance 491 / 571 -20 / -20 -250 / -250
SaO2 96
Nasal Cannula flow liters per 2
minute
Physical Exam
General: Comfortable
HEENT: Normocephalic
Cardiovascular: S1-S2 (Bradycardia noted)
Respiratory: Clear and Non-Labored Respirations
GI: Soft and Non Distended
Neurology: Awake and Alert
Skin: Warm
Labs/Micro/Reports
Lab Data
07/27/24 03:12
07/27/24 03:12
--- NOTE | 2024-07-27 13:35 | PTCARENOTE ---
Pt reassessed. HR remains in the 40-50's, BP adequate at 106/49. Pt's only complaint is a faint [facility] that he says is too mild to start taking tylenol. Dr You in to see pt- no pacer warranted. Surgical sites reassessed and intact. Call siu within
reach, pt makes needs known.
--- NOTE | 2024-07-27 13:36 | CM ---
Addendum entered by Dayanna Becerra 07/27/24 13:56:
RN reports patient has been using walker for transfers to bed/chair. This field nurse case manager texted Dr. Diehl to consider PT consult. Patient does not have any DME at home.
Original Note:
Episodes of bradycardia in the 30's. Cardio wants to continue monitoring on telemetry. Patient and have agreed to RN after discharge . They prefer [facility]. Will send referral.
--- NOTE | 2024-07-27 14:03 | W.PN.UPDATE ---
Update Note
Progress Note Update
EP Consult dictated
Imp:
Post-carotid intervention (TCAR) bradycardia is fairly common from carotid sinus baroreceptor stimulation
AFib, persistent (fairly recently found)
Mixed hyperlipidemia
HTN
Suggest:
Observe
Low dose dopa if needed
Unlikely to need permanent pacemaker
--- NOTE | 2024-07-27 14:48 | CM ---
Addendum entered by Dayanna Becerra 07/27/24 15:14:
Therapy evaluation completed. Recommendation for Home PT. Updated [facility] referral.
Original Note:
PT consult ordered. Script for walker in chart.
--- NOTE | 2024-07-27 16:29 | PTCARENOTE ---
Pt reassessed. Seen by PT, recommending home with RW, script on chart. HR maintaining 40-50's, SBP 100-110's. Pt tolerated sitting up in the chair with intermittent trips into the bathroom, for about 8 hours. No dizziness or diplopia like he had
complained about yesterday. Family at bedside. Call siu within reach.
--- NOTE | 2024-07-27 20:00 | PTCARENOTE ---
Received pt. at 1900. Pt. currently awake, alert, and oriented. Denies pain/discomfort. Afebrile. Heart rhythm afib, takes eliquis. Blood pressure normotensive. Currently on room air. Lungs sound clear. PO diet, good appetite. Abdomen soft
nontender. Voiding without issue. Skin as documented. Discussed plan of care with patient. Vital signs stable at this time.
[2024-07-28] VITALS (12 sets, daily range): BP systolic 94–134; BP diastolic 50–72; BMI 25.3
--- NOTE | 2024-07-28 | PTCARENOTE ---
Pt. assessment unchanged. Ambulated to bathroom with 1x assist and rolling walker multiple times. Blood pressure remains stable. Heart rate 50s to 60s. Pt. is stable at this time.
[2024-07-28 03:43] LABS: Hematocrit 40.4 % (39.0-52.0); Hemoglobin 13.4 g/dL (13.0-18.0); Mean Corp Hgb Conc. 33.2 g/dL (33.0-37.0); Mean Corpuscular Hgb 32.3 pg (27.0-31.0); Mean Corpuscular Volume 97.3 fL (80.0-94.0); Mean Platelet Volume 9.7 fL (7.4-10.4); Platelet Count 144 10^3/uL (130-400); Red Blood Cell Count 4.15 10^6/uL (4.70-6.10); Red Cell Dist. Width 14.4 % (11.5-14.5); White Blood Cell Count 6.3 10^3/uL (4.8-10.8)
--- NOTE | 2024-07-28 04:00 | PTCARENOTE ---
Pt. assessment remains unchanged. AM labs drawn. Vital signs stable at this time.
[2024-07-28 04:19] LABS: Blood Urea Nitrogen 34 mg/dl (9-20); Calcium 8.6 mg/dl (8.4-10.2); Carbon Dioxide 23 mmol/L (22-30); Chloride 112 mmol/L (98-107); Estimated Creatinine Clearance 50 ml/min; Glucose 86 mg/dl (70-99); Magnesium 1.8 mg/dl (1.6-2.3); Potassium 4.7 mmol/L (3.5-5.1); Sodium 139 mmol/L (135-145); eGFR 58.53
--- NOTE | 2024-07-28 07:41 | W.PN.INTV ---
Today's Communication / Plan
Recommendations
- Continue telemetry monitoring
- Patient can be transferred out of ICU
Assessment
-
Patient is a very pleasant 88-year-old gentleman who was electively admitted today for carotid artery stenosis with plan for stent placement. Patient had the procedure performed and postsurgery was admitted to ICU for further management.
Folding Machine Setter consult was requested for further input.
Patient is s/p Transcarotid right carotid artery revascularization with stent (TCAR) with Enroute 9mm x 40mm self-expanding stent, by vascular surgery service, POD #3
Continue observation following procedure
Follow neurovascular checks per protocol
ASA & Eliquis per Vascular surgery
Follow BP monitoring and parameters as set by primary team
H/o A fib. continue telemetry. A-Line removed. Bradycardia noted.
Pain control per protocol
RASS goal 0
No prior history of pulmonary disease, remote smoking history, quit in 1981
CXR reviewed indicating no acute disease
No prior PFTs for review
Encouraged IS
Diet advancement per protocol
Aspiration precautions
DVT prophylaxis with subcu heparin.
CBC, BMP have been fairly unremarkable.
Void trials
Replete electrolytes as needed
No signs/symptoms suspicious for infectious etiology at this time
Will observe off antibiotics for now
Follow temperatures/CBC
Hb and platelets postoperatively stable
Encouraged OOB/PT/OT/ambulation once cleared by surgical team
Other medical issues:
- History of chronic kidney disease, creatinine bit up, @1.3 today.
- Paroxysmal atrial fibrillation with bradycardia. Has not been on any willian blocking agent. Cardiology consult, continue telemetry, ?sick sinus, Normal TSH. Holding valsartan due to soft blood pressure. 07/28, while sleeping heart rate of 47
noted. After I woke him up his heart rate immediately went up to low 50s and eventually low 60s. Asymptomatic.
- History of hypertension, takes valsartan, placed on hold in view of borderline low blood pressure, otherwise asymptomatic. LR x 1 ltr
- Hyperlipidemia
- BPH
Critical Care time 38 mins -- The patient is admitted for acute critical illness for the treatment of vital organ failure and/or prevention of further life-threatening conditions. Total care includes time spent in review of history, physical exam,
medications, hemodynamic/ventilator parameters, laboratory data, imaging and discussion with house staff, pharmacy, respiratory therapy, canvas goods maker, and nursing.
Data:
CXR 07/2024:No radiographic evidence of acute cardiopulmonary abnormality.
ECHO 09/2017: Normal left ventricular size, wall thickness and systolic function. LV ejection fraction is 55-60%.
Possible bicuspid aortic valve but imaging not definitive is adequate leaflet excursion.
No prior study available for comparison.
CT Chest 09/2017: No evidence of pulmonary embolism.
Mild type B aortic intramural hematoma. By report, there is a known history of some type of 'aortic process' in the past. Therefore, findings may be chronic. Direct comparison with any prior outside examination would be beneficial.
Mild bronchial wall thickening/bronchitis.
CT Abdomen/Pelvis 09/2017:
1. Severe aortic atherosclerotic changes as described. No findings highly suspicious for recent aortic intramural hematoma. There is extensive irregular mural thrombus along the thoracic and abdominal aorta as above. There is mild ectasia of the
ascending aorta.
2. 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 No signs of a flow-limiting dissection.
3. Severe stenoses at the origins of the bilateral renal arteries.
4. Bilateral renal cysts and likely cysts.
5. Diverticulosis without diverticulitis.
Subjective Dataa
Subjective Data
Date of Service:
Date of Service: July 28, 2024
Subjective:
Patient comfortably lying in bed in no acute distress. No new complaints reported.
Review of Systems
Genitourinary: Other (All 14 systems reviewed and negative except as stated above in the history of present illness.)
Objective Data
Data Reviewed
Vital Signs / I&O / Oxygen:
Vital Signs
Temp Pulse Resp BP Pulse Ox
98.1 F 57 15 124/64 96
07/28/24 04:00 07/28/24 06:00 07/28/24 06:00 07/28/24 06:00 07/28/24 04:00
Intake and Output
07/27/24 07/28/24 07/29/24
06:59 06:59 06:59
Intake Total 1630 / 1630 1000 / 1000
Output Total 1650 / 1650 575 / 575
Balance -20 / -20 425 / 425
SaO2 96
Nasal Cannula flow liters per 2
minute
Physical Exam
General: Comfortable
HEENT: Normocephalic
Cardiovascular: S1-S2 (Bradycardia noted)
Respiratory: Clear and Non-Labored Respirations
GI: Soft and Non Distended
Neurology: Awake and Alert
Skin: Warm
Labs/Micro/Reports
Lab Data
07/28/24 03:23
07/28/24 03:23
[2024-07-28] MEDS: TUMS EX (EXTRA STRENGTH) CHEWABLE TABLET 600 MG PO (08:54)
[2024-07-28] MEDS: ASPIR LOW (ENTERIC COATED) 81 MG PO (08:55)
[2024-07-28] MEDS: THERAGRAN 1 TABLET PO (08:55)
[2024-07-28] MEDS: ELIQUIS 5 MG PO (08:55)
--- NOTE | 2024-07-28 09:26 | SUR.OPER ---
0700 Assumed care. AAO x3 Ambulates in a room with Walker. Denies pain. Denies chest Discomfort or Dizziness. BP 106/82 via Rt upper arm. SB 50's RT neck incision intact well approximated.
--- NOTE | 2024-07-28 09:32 | W.PN.VS ---
Today's Communication / Plan
-
See plan below for today 07/28/2024.
Assessment/Plan
-
POD 3 right TCAR
Plan:
- Appreciate cardiology
- Okay for discharge from a vascular perspective. Await cardiology follow-up today and if they feel okay as well in terms of bradycardia then we will plan discharge. Will defer to them if anything else further is required in terms of bradycardia
management.
-
Total Time Spent with Patient (in minutes): 10
Subjective Data
-
Date of Service: July 28, 2024
Patient is without significant complaints this morning. Denies any lightheadedness/dizziness/chest pain.
Objective Data
-
Vital Signs
Temp Pulse Resp BP Pulse Ox
97.2 F 57 15 124/64 96
07/28/24 08:00 07/28/24 06:00 07/28/24 06:00 07/28/24 06:00 07/28/24 04:00
Intake and Output
07/27/24 07/28/24 07/29/24
06:59 06:59 06:59
Intake Total 1630 / 1630 1000 / 1000 240 / 240
Output Total 1650 / 1650 575 / 575 800 / 800
Balance -20 / -20 425 / 425 -560 / -560
Intake:
Oral fluids 720 / 720 240 / 240
IV fluids (Total) 910 / 910 1000 / 1000
Lr 1,000 ml @ 100 mls/hr IV . 1000 / 1000
Q10H CARLOS Rx#:[id number]
NSS Bolus 750 / 750
Nss 1,000 ml @ 80 mls/hr IV . 160 / 160
[id number] CARLOS Rx#:[id number]
Output:
Urine, Voided 1650 / 1650 575 / 575 800 / 800
Other:
Number of approximated MODERATE 1
amounts of urine
Lab Results
07/28/24 03:23
07/28/24 03:23
Calcium 8.6 mg/dl (8.4-10.2) 07/28/24 03:23
Magnesium 1.8 mg/dl (1.6-2.3) 07/28/24 03:23
Physical Exam
-
Heart rate currently in the low 60s to upper 50s. Systolic blood pressure in the low 100s. He is awake and alert. No acute distress. Right neck small incision is clean dry and intact. No hematoma. Abdomen soft. Left groin puncture site flat.
No hematoma. Neurologically no focal deficits.
--- NOTE | 2024-07-28 09:44 | W.PN.CD ---
Today's Communication / Plan
-
Overall condition appears to be stable overnight with no worsening bradycardia and no longer pauses. Bradycardia during hours of sleep
Heart rates appear to have improved. Sitting in chair when I walked in the room patient's heart rate was in the upper 60s and 70 bpm but then after talking for him for that he was 70 bpm ambulating in the room heart rates 70s to 80 and patient
asymptomatic.
Patient states he is feels well and is requesting to go home. Blood pressures appear stable.
Patient will remain off of valsartan
Will check blood pressures and orthostatics this morning and have ambulate in the hallway. Considering the improvement in his heart rates if blood pressures are stable and he continues to feel well then it would be reasonable to discharge to home.
He would remain off valsartan and and monitor home blood pressures. 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
Impression / Plan
-
.
Bradycardia.
- A-fib with slow ventricular response with no rate slowing meds.
--Seen by EP consult 07/27/2024 who also recommended continued observation without clear indication for pacing at this time
- Patient with underlying conduction disease he has a history of right bundle branch block/bifascicular block with rate controlled A-fib despite no rate slowing meds based on prior ECG in May. That time heart rate in the 80s.
- Likely lower heart rate due to recent carotid procedure/ TCAR.
-Bradycardia during hours of sleep but no indication for pacing. Baseline heart rates have increased sitting in chair heart rate was 65-70 feeling fine with ambulation.
.
Low blood pressure. Improved. Will remain off valsartan for now
.
A-fib.
- History of A-fib prior to admission.
- Eliquis
.
Post TCAR management directed by vascular surgery
.
? transient change in vision left eye. [place] he couldnot read the board on wall clearly. Now resolved.
will have vasc surgery assess
.
Physical Exam
Vital Signs/Labs
Vital Signs
Temp Pulse Resp BP Pulse Ox
97.2 F 57 15 124/64 96
07/28/24 08:00 07/28/24 06:00 07/28/24 06:00 07/28/24 06:00 07/28/24 04:00
07/27/24 07/28/24 07/29/24
06:59 06:59 06:59
Actual Weight 90 kg 89.5 kg
07/28/24 03:23
07/28/24 03:23
PT 14.1 Sec (11.4-14.6) 07/26/24 04:45
INR 1.04 07/26/24 04:45
APTT 34.5 Sec (23.4-35.0) 07/26/24 04:45
Magnesium 1.8 mg/dl (1.6-2.3) 07/28/24 03:23
TSH 0.47 uIU/ml (0.47-4.68) 07/26/24 04:45
Physical Exam
Constitutional: No acute distress
Cardiovascular: Rhythm & rate is regular
Respiratory: Lungs clear to auscul.
GI: Soft
Neuro/Psych: Alert
Data Reviewed
-
Date of Service: July 28, 2024
Medical Decision Making: Reviewed Test Results
Medical Tests (PFT, Pathology etc): Report Reviewed by me
--- NOTE | 2024-07-28 10:01 | CM ---
Patient seen at bedside in ICU. Patient confirmed plan is for discharge home pending physician assessment. Patient reviewed IMM and signed form placed on chart. Patient stated his plan is for discharge home with Linda to follow. CM will continue to
follow for discharge planning needs.
Plan; home with [facility] and wheelchair script on chart for therapy.
--- NOTE | 2024-07-28 13:28 | PTCARENOTE ---
Patient discharge home. All discharge instructions given to patient and his . Both verbalized an understanding all instructions regarding medications and follow up appointments. Patient discharge home with [facility] script returned to PT .
Patient's provided transportation. 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
== END 2024-07-28 13:45 | disposition home health service (06) | DRG 35 ==
LOC: ICU 05:52
PROVIDERS: Nurse Practitioner; Nurse Practitioner Primary Care; ADMITTING PHYSICIAN Surgery Vascular Surgery; CONSULT PHYSICIAN Internal Medicine; CONSULT PHYSICIAN Internal Medicine Cardiovascular Disease; FAMILY PHYSICIAN Family Medicine
PROC: X2AH336 Cerebral Embolic Filtration, Extracorporeal Flow Reversal Circuit from Right Common Carotid Artery, Percutaneous Approach, New Technology Group 6 (ICD-10-PCS; 2024-07-25)
PROC: 037K3DZ Dilation of Right Internal Carotid Artery with Intraluminal Device, Percutaneous Approach (ICD-10-PCS; 2024-07-25)
DX: I65.21 Occlusion and stenosis of right carotid artery (principal); I48.19 Other persistent atrial fibrillation; I97.191 Other postprocedural cardiac functional disturbances following other surgery; N40.0 Benign prostatic hyperplasia without lower urinary tract symptoms; N18.30 Chronic kidney disease, stage 3 unspecified; I12.9 Hypertensive chronic kidney disease with stage 1 through stage 4 chronic kidney disease, or unspecified chronic kidney disease; E78.2 Mixed hyperlipidemia; I73.00 Raynaud's syndrome without gangrene; K21.9 Gastro-esophageal reflux disease without esophagitis; I25.10 Atherosclerotic heart disease of native coronary artery without angina pectoris; I45.10 Unspecified right bundle-branch block; R03.1 Nonspecific low blood-pressure reading; Z96.641 Presence of right artificial hip joint; Z88.0 Allergy status to penicillin; Z88.1 Allergy status to other antibiotic agents; Z87.891 Personal history of nicotine dependence; Z90.49 Acquired absence of other specified parts of digestive tract; Z79.01 Long term (current) use of anticoagulants; Z79.82 Long term (current) use of aspirin; Q23.81 Bicuspid aortic valve; Z95.820 Peripheral vascular angioplasty status with implants and grafts; Z87.442 Personal history of urinary calculi; I49.8 Other specified cardiac arrhythmias; Y84.8 Other medical procedures as the cause of abnormal reaction of the patient, or of later complication, without mention of misadventure at the time of the procedure
CPT/HCPCS: 36415; 37215; 71046; 80048; 83735; 84443; 85025; 85027; 85610; 85730; 86850; 86900; 86901; 93005; 93306; 95938; 95941; 95955; 97163; C1725; C1769; C1876; C1884; C1894; Q9967

== ENCOUNTER → 2024-09-17 13:33 | Outpatient (REF) | payer MEDICARE, OTHER, SELFPAY | LOC: RAD 13:33 | PROVIDERS: ATTENDING PHYSICIAN Registered Nurse; FAMILY PHYSICIAN Family Medicine | DX: I65.23 Occlusion and stenosis of bilateral carotid arteries (principal) | CPT/HCPCS: 93880 ==